=== PATIENT | female | born 1985 | race Caucasian/White ===

== ENCOUNTER 2017-11-29 21:45 | Emergency (ER) | payer OTHER ==
[~2017-11-29] VITALS: Ht 160 cm; Wt 92.4 kg
[~2017-11-29 21:45] MED LIST: CIPRO500 MG PO; CONCEPT OB PO; LORTAB5 PO; NO; PERCOCET 5/321 COMBO PO; PRENATAL1 TAB PO; ZOFRAN ODT4 MG OR
[2017-11-29] MEDS ORDERED: TAM75CAP PO (22:39)
[2017-11-29 23:10] VITALS: BP 148/76
== END 2017-11-29 23:10 | disposition home or self-care (01) ==
LOC: ED 21:45
DX: J11.1 Influenza due to unidentified influenza virus with other respiratory manifestations (principal); E03.9 Hypothyroidism, unspecified; R05 Cough; R51 Headache

== ENCOUNTER 2021-10-23 04:36 | Emergency (ER) | payer OTHER ==
[~2021-10-23] VITALS: Ht 160 cm; Wt 90.9 kg
[~2021-10-23 04:36] MED LIST changes: +TAM75CAP PO
[2021-10-23 05:32] LABS: URINE BILIRUBIN - DIPSTICK NEGATIVE (NEGATIVE); URINE COLOR YELLOW; URINE GLUCOSE - DIPSTICK NEGATIVE (NEGATIVE); URINE KETONE NEGATIVE (NEGATIVE); URINE LEUK ESTERASE TRACE (NEGATIVE); URINE PROTEIN - DIPSTICK NEGATIVE (NEG-TRACE); URINE SPECIFIC GRAVITY 1.025; URINE UROBILINOGEN - DIPSTICK 0.2 E.U./dL (0.2)
[2021-10-23 05:42] LABS: URINE BACTERIA MANY hpf; URINE BLOOD DIPSTICK NEGATIVE (NEGATIVE); URINE EPITHELIAL CELLS MODERATE EPI/hpf (0-FEW); URINE NITRITE - DIPSTICK POSITIVE (Negative)
[2021-10-23 05:47] LABS: BILIRUBIN, TOTAL 0.4 mg/dL (0.0-1.4); BUN 8 mg/dL (7-17); BUN/CREATININE RATIO 11 (12-20 (CALC)); CHLORIDE 103 mmol/l (95-108); CREATININE 0.7 mg/dL (0.5-1.0); GFR FOR AFR.AMER. > 60 ML/MIN (>=60 (CALC)); GFR OTHER RACES > 60 ML/MIN (>=60 (CALC)); LIPASE 253 u/l (23-300); SODIUM 138 mmol/l (137-146)
[2021-10-23 05:57] LABS: CARBON DIOXIDE 28 mmol/l (22-30)
[2021-10-23 06:01] LABS: HEMATOCRIT 35.7 % (37.0-47.0); HEMOGLOBIN 11.5 g/dl (12.0-16.0); IMMATURE GRANULOCYTES 0.1 % (0.0-5.0); MEAN CELL VOLUME 84.8 fL CALC (80.0-100.0); MEAN CORPUSCULAR HGB 27.3 pG CALC (26.0-32.0); MEAN CORPUSCULAR HGB CONC 32.2 g/dL CAL (32.0-36.0); NEUT# 6.44 thou/uL (2.00-7.15); RED BLOOD COUNT 4.21 mill/uL (4.20-5.60); RED CELL DISTRI WIDTH 13.1 % (11.5-15.5)
[2021-10-23 06:12] LABS: ALBUMIN 4.1 g/dL (3.2-5.0); ALKALINE PHOSPHATASE 180 u/l (38-126); ANION GAP 11 (6-22 (CALC)); POTASSIUM 3.9 mmol/l (3.5-5.1); SGOT/AST 318 u/l (14-36); TOTAL PROTEIN 7.9 g/dL (6.3-8.2)
[2021-10-23] MEDS ORDERED: PROTONIX40 M2 PO (07:25)
[2021-10-23] MEDS ORDERED: ZOFRAN4 MG/TAB PO (07:25)
[2021-10-23 07:41] VITALS: BP 134/95
== END 2021-10-23 07:49 | disposition home or self-care (01) ==
LOC: ED 04:36
PROVIDERS: Family Medicine
DX: R10.13 Epigastric pain (principal); R10.11 Right upper quadrant pain
CPT/HCPCS: Q9967

== ENCOUNTER 2022-09-25 02:47 | Emergency (ER) | payer OTHER ==
[~2022-09-25] VITALS: Ht 157.5 cm; Wt 86.0 kg
[2022-09-25] VITALS (16 sets, daily range): BP systolic 134–169; BP diastolic 79–110
[~2022-09-25 02:47] MED LIST changes: +PROTONIX40 M2 PO; +ZOFRAN4 MG/TAB PO
[2022-09-25] MEDS ORDERED: LEVOTHYROXIN25 MC1 PO (03:43)
[2022-09-25] MEDS ORDERED: LISINOPRIL2.5 MG PO (03:44)
[2022-09-25 04:35] LABS: BASO% 0.9 % (0-3); EOS% 4.6 % (0-8); HEMATOCRIT 35.6 % (37.0-47.0); HEMOGLOBIN 10.8 g/dl (12.0-16.0); IMMATURE GRANULOCYTES 0.5 % (0.0-5.0); LYMPH% 28.2 % (15-41); MEAN CELL VOLUME 82.4 fL CALC (80.0-100.0); MEAN CORPUSCULAR HGB CONC 30.3 g/dL CAL (32.0-36.0); NEUT# 4.86 thou/uL (2.00-7.15); NEUT% 59.8 % (42-76); RED BLOOD COUNT 4.32 mill/uL (4.20-5.60); RED CELL DISTRI WIDTH 13.2 % (11.5-15.5)
[2022-09-25 04:44] LABS: ANION GAP 12 (6-22 (CALC)); BILIRUBIN, TOTAL 0.5 mg/dL (0.02-1.3); BUN 12 mg/dL (7-17); BUN/CREATININE RATIO 12 (12-20 (CALC)); CARBON DIOXIDE 25 mmol/l (22-30); CHLORIDE 106 mmol/l (95-108); CREATININE 1.1 mg/dL (0.5-1.0); GFR FOR AFR.AMER. > 60 ML/MIN (>=60 (CALC)); GFR OTHER RACES 56 ML/MIN (>=60 (CALC)); POTASSIUM 3.8 mmol/l (3.5-5.1); SODIUM 139 mmol/l (137-146); TOTAL PROTEIN 7.8 g/dL (6.3-8.2)
[2022-09-25] MEDS ORDERED: BENADRYL25 M1 PO (04:47)
[2022-09-25] MEDS ORDERED: PREDNISONE20 MG PO (04:47)
[2022-09-25] MEDS ORDERED: CEPHALEXIN500 M1 PO (04:47)
[2022-09-25 04:49] LABS: SGOT/AST 25 u/l (14-36)
[2022-09-25 04:50] LABS: ALKALINE PHOSPHATASE 79 u/l (38-126)
== END 2022-09-25 07:10 | disposition home or self-care (01) ==
LOC: ED 02:47
PROVIDERS: Emergency Medicine
DX: T78.40XA Allergy, unspecified, initial encounter (principal); I10 Essential (primary) hypertension; E03.9 Hypothyroidism, unspecified; X58.XXXA Exposure to other specified factors, initial encounter

== ENCOUNTER 2023-02-24 20:14 | Emergency (ER) | payer OTHER ==
[~2023-02-24] VITALS: Ht 157.5 cm; Wt 81.6 kg
[~2023-02-24 20:14] MED LIST changes: +BENADRYL25 M1 PO; +CEPHALEXIN500 M1 PO; +LEVOTHYROXIN25 MC1 PO; +LISINOPRIL2.5 MG PO; +PREDNISONE20 MG PO
[2023-02-24] MEDS ORDERED: TRAMADOL HCL50 MG PO (20:46)
[2023-02-24] MEDS ORDERED: NAPROXEN375 MG PO (20:46)
[2023-02-24 21:07] VITALS: BP 136/89
== END 2023-02-24 21:13 | disposition home or self-care (01) ==
LOC: ED 20:14
DX: K04.7 Periapical abscess without sinus (principal); I10 Essential (primary) hypertension; E03.9 Hypothyroidism, unspecified
CPT/HCPCS: J0561